=== PATIENT | female | born 1995 | race Caucasian/White ===

== ENCOUNTER 2016-08-26 22:05 | Emergency (ER) | payer SELFPAY ==
[~2016-08-26] VITALS: Ht 160 cm; Wt 78.5 kg
[~2016-08-26 22:05] MED LIST: MACR100C PO
[2016-08-26 22:24] VITALS: BP 132/68; PULSE 82; RESP 17; TEMP 98.5; O2SAT 100
[2016-08-26] MEDS ORDERED: ASPI325T PO (22:28)
[2016-08-26] MEDS ORDERED: IBUP-232 PO (22:44)
[2016-08-26] MEDS ORDERED: IBUPROFEN 600 MG TAB PO ONE (22:45)
--- NOTE | 2016-08-26 22:45 | PD ---
HPI Chief Complaint: Musculoskeletal Complaint Time Seen by Provider: 22:36 Travel History International Travel<30 days: No Contact w/Intl Traveler<30days: No Traveled to known affect area: No History of Present Illness HPI About 2 weeks ago the patient accidentally hyper-inverted her right ankle. Since then she has had minimal pain overlying the dorsum of the foot at the distal aspect of the tarsals predominantly 3 and 4. The pain is most severe in the mornings and by the end of the day it becomes quite mild. 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 She has not needed oral analgesics as of yet. She has no interim injury to report however does note in the remote past accidentally dropping a 45 pound weight fracturing toes on the right side and subsequently gene taping them for quite some time. PFSH Past Medical History Diminished Hearing: No Reproductive: Yes (HAS NOT HAD HER PERIOD FOR THE PAST 6 MONTHS) Immunizations Current: Yes ?: Not LMP: 08/26/2016 : 2 Para: 0 Miscarriage: 1 Social History Alcohol Use: Yes Tobacco Use: No Substance Use: No Allergies-Medications (Allergen,Severity, Reaction): Coded Allergies: Penicillin (Verified Allergy, Unknown, Rash, 08/26/16) Reported Meds & Prescriptions Reported Meds & Active Scripts Active Reported Aspirin 325 Mg Tab 325 Mg PO DAILY Review of Systems General / Constitutional: No: Fever Musculoskeletal: Positive: Pain Physical Exam Narrative GENERAL: Pleasant 21-year-old female no acute distress SKIN: Focused skin assessment warm/dry. HEAD: Atraumatic. Normocephalic. GASTROINTESTINAL: Abdomen soft, non-tender, nondistended. Hepatic and splenic margins not palpable. MUSCULOSKELETAL: No obvious deformities. No clubbing. No cyanosis. Minimal tenderness overlying the dorsum of the right foot towards the heads of the third and fourth tarsals. Trace ecchymosis in the area also noted. 2+ dorsalis pedis bilaterally. NEUROLOGICAL: Awake and alert. No obvious cranial nerve deficits. Motor grossly within normal limits. Normal speech. Data Data Last Documented VS Vital Signs Date Time Temp Pulse Resp B/P Pulse Ox O2 Delivery O2 Flow Rate FiO2 08/26/16 22:24 98.5 82 17 132/68 100 Vital signs reviewed Orders Foot, Complete ([id number]) (08/26/16 22:39) Ice/Cold Pack (08/26/16 22:39) Ibuprofen (Motrin) (08/26/16 22:45) MDM Medical Decision Making Medical Screen Exam Complete: Yes Emergency Medical Condition: Yes Medical Record Reviewed: Yes Differential Diagnosis Dislocation, fracture, contusion, ecchymosis Narrative Course Imaging normal. Ice gayla elevation compression. Diagnosis Primary Impression: Right foot injury Qualified Code: S99.921S - Right foot injury, sequela Referrals: Gucci Kwon DPM as needed Additional Instructions: You have a choice when it comes to health care, and we are glad that you chose [facility]. Hopefully, we have met your expectations on today's visit. You are welcome to return to [facility] at any time, as we are committed to meeting the health care needs of our community. Med/Other Pt SpecificInfo: Prescription(s) given Scripts Ibuprofen 600 Mg [id number] Mg PO Q8HR PRN (PAIN SCALE 6 TO 10) 7 Days Ref 0 Prov:Julius Saab MD 08/26/16 Disposition: 01 DISCHARGE HOME Condition: Stable Julius Saab MD Aug 26, 2016 22:45
--- NOTE | 2016-08-26 22:53 | RADHPO ---
EXAM DATE/TIME: 08/26/2016 22:41 [facility] COMPARISON: No previous studies available for comparison. INDICATIONS : Right foot pain for two weeks. Patient states she injured it by rolling her foot. MEDICAL HISTORY : None. SURGICAL HISTORY : None. ENCOUNTER: Initial ACUITY: 2 weeks PAIN SCORE: 4/10 LOCATION: Right foot. FINDINGS: Three view examination of the right foot demonstrates no soft tissue swelling, dislocation, or fractu re. The tarsal bones appear intact. The interphalangeal and metatarsophalangeal joints are intact. The calcaneus is intact. Bony mineralization is normal. Tibial sesamoid is bipartite. CONCLUSION: Intact right foot. Maycol Watson MD on August 26, 2016 at 22:51 Board Certified Radiologist. This report was verified electronically.
== END 2016-08-26 23:33 | disposition home or self-care (01) ==
LOC: PHED 22:05
DX: M79.671 Pain in right foot (principal); S99.921S Unspecified injury of right foot, sequela; W22.8XXS Striking against or struck by other objects, sequela
CPT/HCPCS: 73630; 84703; 99283